=== PATIENT | male | born 1945 | race Caucasian/White ===

== ENCOUNTER → 2018-12-09 | Outpatient (REF) | payer MEDICARE, BC ==
[2018-12-09 17:11] LABS: PLATELET COUNT, AUTOMATED 188 10^3/uL (150-450)
[2018-12-09 17:13] LABS: INR 1.63; PROTHROMBIN TIME 19.1 SECONDS (11.8-14.0)
[2018-12-09 17:14] LABS: PARTIAL THROMBOPLASTIN TIME 40.5 SECONDS (25.0-38.4)
== END ==
LOC: M LAB REF 16:43
PROVIDERS: ATTEND Internal Medicine Pulmonary Disease
DX: R91.8 Other nonspecific abnormal finding of lung field (principal)

== ENCOUNTER → 2018-12-17 | Outpatient (CLI) | payer MEDICARE, BC ==
[~2018-12-17] MED LIST: ASPI81TA26 PO; ATEN100T PO; ATOR1TAB19 PO; D 1010004 PO; DILT60TA PO; FLON1SPR; LISI-542 PO; ONE-TAB25 PO; TAMS1CAP17 PO; XARE10TA PO
[2018-12-17 12:52] VITALS: BP 144/76
--- NOTE | 2018-12-17 15:27 | REP ---
Right thoracic ultrasound: History: Right pleural effusion. The patient is referred for possible thoracentesis under ultrasound guidance. No comparison imaging. Findings: Right thoracic sonographic imaging shows no evidence of pleural effusion. Accordingly, thoracentesis was not performed. Electronically Signed by Edwar Velázquez MD 12/17/2018 05:20 P
== END ==
LOC: M IRPRO 12:25
PROVIDERS: ATTEND Internal Medicine Pulmonary Disease
DX: J90 Pleural effusion, not elsewhere classified (principal)

== ENCOUNTER 2023-10-07 07:10 | Day surgery (SDC) | payer MEDICARE ==
[~2023-10-07] VITALS: Ht 172.7 cm; Wt 77.8 kg
[~2023-10-07 07:10] MED LIST changes: -LISI-542 PO; +LISI5TAB11 PO; +MULTTAB61 PO; +PROA1AER2 IN; +TREL1AER IN; +VITA100093 PO
[2023-10-07] MEDS ORDERED: propofoL 200 MG/20 ML VIAL As Ordered ONE (07:57)
[2023-10-07] MEDS ORDERED: SUGAMMADEX SODIUM 500 MG/5 ML VIAL (BRIDION) As Ordered ONE (07:57)
[2023-10-07] MEDS ORDERED: GLYCOPYRROLATE INJ 0.2 MG/ML 2 ML VIAL As Ordered ONE (07:57)
[2023-10-07] MEDS ORDERED: ROCURONIUM BROMIDE 50MG/5ML VIAL As Ordered ONE (07:57)
[2023-10-07] MEDS ORDERED: ONDANSETRON 4MG 2ML VIAL As Ordered ONE (07:57)
[2023-10-07] MEDS ORDERED: fentaNYL 100 MCG/2 ML INJECTION As Ordered ONE (07:57)
[2023-10-07] MEDS: LIDOCAINE PRES-FREE 2% 10ML AMP INH ONE (08:33)
[2023-10-07] MEDS: LR 1,000 ML IV SCH (08:34)
[2023-10-07] MEDS: ALBUTEROL SULFATE 2.5MG/0.5ML INH NEB SOLN INH ONE (08:34)
[2023-10-07] MEDS: CETACAINE SPRAY 5GM As Ordered ONE (08:54)
[2023-10-07] MEDS: EPINEPHrine 1MG/10ML SYRINGE 1.5IN As Ordered ONE (09:25)
[2023-10-07] MEDS ORDERED: LR 1,000 ML IV SCH (10:00)
[2023-10-07] MEDS ORDERED: fentaNYL 100 MCG/2 ML INJECTION IV PRN (10:00)
[2023-10-07] MEDS ORDERED: oxyCODONE 5MG TAB PO PRN (10:00)
[2023-10-07] MEDS ORDERED: HYDROMORPHONE HCL 0.5 MG/ 0.5 ML SYRINGE IV PRN (10:00)
[2023-10-07] MEDS ORDERED: ONDANSETRON 4MG 2ML VIAL IV PRN (10:00)
[2023-10-07 11:00] VITALS: BP 171/81
[2023-10-07] MEDS: hydrALAZINE 20MG/ML 1ML VIAL IV STA (11:00)
[2023-10-07 11:53] VITALS: BP 161/87; TEMP 97.7; O2SAT 98
== END 2023-10-07 11:55 | disposition home or self-care (01) ==
LOC: M SDC 07:10
PROVIDERS: ATTEND Internal Medicine Pulmonary Disease
DX: C34.31 Malignant neoplasm of lower lobe, right bronchus or lung (principal); I48.91 Unspecified atrial fibrillation; I10 Essential (primary) hypertension; E78.5 Hyperlipidemia, unspecified; J44.9 Chronic obstructive pulmonary disease, unspecified; F17.218 Nicotine dependence, cigarettes, with other nicotine-induced disorders; G47.33 Obstructive sleep apnea (adult) (pediatric); Z79.01 Long term (current) use of anticoagulants; Z79.899 Other long term (current) drug therapy
CPT/HCPCS: 31623; 31627; 31628; 31652; 71045; 76000; 87070; 87102; 87116; 87205; 87206; 88104; 88305; 93005; C1601; J0171; J0360; J1100; J1596; J2405; J3010; S2900